=== PATIENT | female | born 1935 | race Caucasian/White ===

== ENCOUNTER 2016-05-23 09:36 | Day surgery (SDC) | payer MEDICARE, OTHER ==
[~2016-05-23 09:36] MED LIST: ADVAIR 50028 BLISTE1 INH; ADVAIR INH; ALPRAZOLAM0.25 M3 PO; ASPIRIN325 M3 PO; ASPIRIN500 MG PO; BENADRYL25 M3 PO; BENADRYL25 MG PO; CALCIUM + D SO1 EAC1 PO; CALCIUM W/VIT D1 TA PO; CARDIZEM LA120 M1 PO; CARDURA4 M1 PO; CARDURA4 MG PO; CITRUCEL500 M1 PO; DIOVAN HCT PO; FOSAMAX70 M1 PO; LASIX40 M1 PO; MELOXICAM15 M1 PO; MIRALAX17 G2 PO; MUCUS ER600 M1 PO; OCUVITE WITH L1 EACH; OMEGA 3 FISH O1 EACH PO; OXYGEN; PLAVIX75 M1 PO; PRILOSEC20 M1 PO; PRINIVIL10 M1 PO; SPIRIVA18 MCG IH; TUDORZA PRESS400 MC1 INH; VALSARTAN-HCTZ1 EA13 PO; XANAX0.25 MG PO; [UNRECOGNIZED DRUG - OTHER] PO
[2016-05-23 10:18] LABS: BASO % 0.7 % (0-2); BASO ABSOLUTE COUNT 0.1 tho/cmm (0.0-0.2); EOS % 4.7 % (0-7); EOSINOPHIL ABSOLUTE COUNT 0.5 tho/cmm (0.0-0.7); HGB-HEMOGLOBIN 13.4 gm/dl (12.0-15.5); IMMATURE GRANULOCYTES ABSOLUTE 0.02 tho/cmm (0-0.03); IMMATURE GRANULOCYTES PERCENT 0.2 % (0-0.3); LYMPH % 17.1 % (20-45); LYMPH ABSOLUTE COUNT 1.7 tho/cmm (0.8-4.5); MCH (MEAN CORPUSCULAR HGB) 28.8 pg (28.0-32.0); MCHC MEAN CORPUSCULAR HGB CONC 33.5 % (32.0-36.0); MCV (MEAN CELL VOLUME) 85.8 fl (82.0-96.0); MONO % 9.1 % (0-12); MONOCYTE ABSOLUTE COUNT 0.9 tho/cmm (0.0-1.2); NEUTROPHIL ABSOLUTE COUNT 6.9 tho/cmm (1.6-8.0); NEUTROPHIL-AUTOMATED 6.9 tho/cmm (1.6-8.0); NEUTROPHILS % 68.2 % (40-80); PLATELET COUNT 531 tho/cmm (150-450); RED BLOOD COUNT 4.66 mil/cmm (4.00-5.20); RED CELL DISTRIBUTION WIDTH 15.1 % (12.4-16.4)
[2016-05-23 10:30] LABS: PROTHROMBIN TIME 11.7 SECONDS (9.0-13.6)
== END 2016-05-23 15:15 ==
LOC: SHSB 09:36
PROVIDERS: Radiology Diagnostic Radiology
PROC: 0FB23ZX Excision of Left Lobe Liver, Percutaneous Approach, Diagnostic (ICD-10-PCS; principal; 2016-05-23)
DX: C22.7 Other specified carcinomas of liver (principal); J44.9 Chronic obstructive pulmonary disease, unspecified; J45.909 Unspecified asthma, uncomplicated; K21.9 Gastro-esophageal reflux disease without esophagitis; I10 Essential (primary) hypertension; F32.9 Major depressive disorder, single episode, unspecified; Z79.02 Long term (current) use of antithrombotics/antiplatelets; Z79.1 Long term (current) use of non-steroidal anti-inflammatories (NSAID); Z79.82 Long term (current) use of aspirin; Z79.83 Long term (current) use of bisphosphonates; Z79.899 Other long term (current) drug therapy; Z88.0 Allergy status to penicillin; Z88.1 Allergy status to other antibiotic agents; Z86.718 Personal history of other venous thrombosis and embolism; Z87.891 Personal history of nicotine dependence; Z80.0 Family history of malignant neoplasm of digestive organs; Z80.42 Family history of malignant neoplasm of prostate; Z98.49 Cataract extraction status, unspecified eye; Z90.710 Acquired absence of both cervix and uterus; Z98.890 Other specified postprocedural states
CPT/HCPCS: J2250; J3010; J7030